=== PATIENT | male | born 1985 | race African-American/Black ===

== ENCOUNTER 2016-06-13 18:21 | Inpatient (IN) | payer OTHER ==
[~2016-06-13 18:21] MED LIST: LACTATED RINGER'S 1000 ML INJ 2,000 ML IV ONE; LACTATED RINGER'S 1000 ML INJ 4,000 ML IV ONE; MIDAZOLAM HCL 5 MG/ML VIAL (1 ML) IV ONE; MORPHINE SULFATE 10 MG/ML INJ IV ONE; ONDANSETRON HCL 4 MG/2 ML VIAL IV PUSH ONE; PHENYLEPH/NS 1000 MCG/10 ML SYR IV ONE; PROPOFOL 200 MG/20 ML AMP IV ONE; ceFAZolin 2 GM PREMIX 50 ML IV STA
[2016-06-13] MEDS ORDERED: ceFAZolin 2 GM PREMIX 50 ML ONE (18:25)
[2016-06-13] MEDS ORDERED: ONDANSETRON HCL 4 MG/2 ML VIAL ONE (18:25)
[2016-06-13] MEDS ORDERED: DIPHTH/TETANUS/ACEL PERTUSSIS (BOOSTER) 0.5 ML VIAL/PFS IM ONE ×2 (18:25→21:49)
[2016-06-13] MEDS ORDERED: MORPHINE SULFATE 8 MG/ML INJ ONE (18:25)
[2016-06-13] MEDS ORDERED: MIDAZOLAM HCL 5 MG/ML VIAL (1 ML) ONE (18:30)
[2016-06-13 18:46] VITALS: O2SAT 100
[2016-06-13 18:54] LABS: AUTOMATED NEUTROPHIL # 6.9 TH/MM3 (1.8-7.7); BASOPHIL % 0.3 % (0.0-2.0); EOSINOPHIL # 0.1 TH/MM3 (0-0.4); EOSINOPHIL % 1.1 % (0.0-4.0); HEMO FLAGS DIFF FINAL; LYMPH % 35.8 % (9.0-44.0); LYMPHOCYTE # 4.5 TH/MM3 (1.0-4.8); MEAN CELL VOLUME 87.4 FL (80.0-100.0); MEAN CORPUSCULAR HEMOGLOBIN 28.6 PG (27.0-34.0); MEAN CORPUSCULAR HGB CONC 32.7 % (32.0-36.0); MONO % 7.1 % (0.0-8.0); NEUT % 55.7 % (16.0-70.0); PLATELET COUNT 292 TH/MM3 (150-450); RED BLOOD COUNT 4.92 MIL/MM3 (4.50-5.90); RED CELL DISTRIBUTION WIDTH 13.1 % (11.6-17.2); WHITE BLOOD COUNT 12.5 TH/MM3 (4.0-11.0)
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
[2016-06-13 19:17] LABS: APTT (PATIENT) 20.8 SEC (24.3-30.1); PROTHROMBIN TIME - PATIENT 11.3 SEC (9.8-11.6)
[2016-06-13] MEDS ORDERED: IOHEXOL 350 MG/ML 10 ML VIAL (for RAD DIAG) IV ONE (19:18)
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
[2016-06-13] MEDS ORDERED: GENTAMICIN SULFATE 80 MG/2 ML VIAL ONE (19:28)
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
[2016-06-13] MEDS ORDERED: BACITRACIN TOP OINT 15 GM TUBE ONE ×2 (21:28→22:16)
[2016-06-13] MEDS ORDERED: MISCELLANEOUS NURSING INFORMATION XX SCH (21:45)
[2016-06-13] MEDS ORDERED: SODIUM CHLORIDE 0.9% FLUSH 10 ML FLUSH IV FLUSH PRN (21:45)
[2016-06-13] MEDS ORDERED: CHLORHEXIDINE GLUCONATE 2 % 1 PACK (2 CLOTHS) TOP PRN (21:45)
[2016-06-13] MEDS ORDERED: MAGNESIUM HYDROXIDE SUSP 30 ML CUP PO PRN (21:45)
[2016-06-13] MEDS ORDERED: fentaNYL CITRATE 250 MCG/5 ML AMP ONE (21:48)
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
[2016-06-13] MEDS ORDERED: *morphine SULFATE 8 MG/ML PERIprocedure ONLY ONE (22:39)
[2016-06-13] MEDS ORDERED: *MEPERIDINE 25 MG INJ VIAL PERIprocedural Use ONLY ONE (22:39)
[2016-06-13] MEDS ORDERED: MIDAZOLAM HCL 2 MG/2 ML VIAL ONE (22:45)
[2016-06-13] MEDS: LACTATED RINGER'S 1000 ML INJ 1,000 ML IV SCH (23:14)
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
[2016-06-13] MEDS ORDERED: LABETALOL HCL 100 MG/20 ML VIAL ONE (23:27)
[2016-06-14] VITALS (7 sets, daily range): BP systolic 129–152; BP diastolic 70–88; PULSE 100–119; RESP 16–19; TEMP 97.6–100; O2SAT 99–100
[2016-06-14] MEDS: HYDROmorphone HCL PF 1 MG/ML VIAL IVP PRN ×3 (00:45→09:34)
[2016-06-14] MEDS: CHLORHEXIDINE GLUCONATE 2 % 1 PACK (2 CLOTHS) TOP SCH (04:24)
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
[2016-06-14 07:30] LABS: BASOPHIL % 0.1 % (0.0-2.0); EOSINOPHIL % 0.1 % (0.0-4.0); HEMATOCRIT 30.3 % (39.0-51.0); LYMPH % 10.3 % (9.0-44.0); LYMPHOCYTE # 1.2 TH/MM3 (1.0-4.8); MEAN CELL VOLUME 86.6 FL (80.0-100.0); MEAN CORPUSCULAR HEMOGLOBIN 29.2 PG (27.0-34.0); MEAN CORPUSCULAR HGB CONC 33.7 % (32.0-36.0); MONO % 13.1 % (0.0-8.0); NEUT % 76.4 % (16.0-70.0); PLATELET COUNT 208 TH/MM3 (150-450); RED CELL DISTRIBUTION WIDTH 12.9 % (11.6-17.2); WHITE BLOOD COUNT 11.8 TH/MM3 (4.0-11.0)
[2016-06-14 07:35] LABS: HEMO FLAGS AUTO DIFF
[2016-06-14] MEDS: LACTATED RINGER'S 1000 ML INJ 1,000 ML IV SCH ×2 (07:42→17:42)
[2016-06-14 07:51] LABS: ANION GAP 10 MEQ/L (5-15); AST (GOT) 207 U/L (15-37); BICARBONATE 27.9 MEQ/L (21.0-32.0); BLOOD UREA NITROGEN 9 MG/DL (7-18); CHLORIDE 103 MEQ/L (98-107); GLOMERULAR FILTRATION RATE 70 ML/MIN (>89); POTASSIUM 3.9 MEQ/L (3.5-5.1); SODIUM (NA) 141 MEQ/L (136-145)
[2016-06-14 07:54] LABS: ALKALINE PHOSPHATASE 40 U/L (45-117); ALT (GPT) 343 U/L (12-78); TOTAL BILIRUBIN ADULT 0.6 MG/DL (0.2-1.0)
[2016-06-14 08:21] LABS: BANDS 12 % (0-6); NEUTROPHIL # MANUAL DIFF 9.7 TH/MM3 (1.8-7.7); POLYS (SEG NEUTROPHILS) 70 % (16-70); WBC DIFF SAMPLE 100
[2016-06-14 08:25] LABS: PLATELET ESTIMATE SMEAR NORMAL (NORMAL); PLATELET MORPHOLOGY NORMAL (NORMAL)
[2016-06-14 08:26] LABS: SCAN/DIFF FINAL DIFF MANUAL
[2016-06-14] MEDS ORDERED: DOCUSATE SODIUM 50 MG/SENNA 8.6 MG TAB PO SCH (09:00)
[2016-06-14] MEDS: BACITRACIN TOP OINT 15 GM TUBE TOPICAL SCH ×2 (09:00→20:28)
[2016-06-14] MEDS: FAMOTIDINE 20 MG TAB PO SCH ×2 (09:00→20:28)
[2016-06-14] MEDS: METHOCARBAMOL 500 MG TAB PO SCH ×2 (09:00→17:59)
[2016-06-14] MEDS ORDERED: POVIDONE IODINE 5% (ANTISEPSIS KIT) 4 APPLICATIONS EACH NARE PRN (10:00)
[2016-06-14] MEDS ORDERED: CHLORHEXIDINE GLUCONATE 2 % 1 PACK (2 CLOTHS) TOPICAL PRN (10:00)
[2016-06-14] MEDS ORDERED: METOPROLOL TARTRATE 25 MG TAB PO PRN (10:00)
[2016-06-14] MEDS ORDERED: SODIUM CHLORID 0.9% 500 ML IV PRN (10:00)
[2016-06-14] MEDS ORDERED: INSULIN HUMAN REGULAR 1,000 UNITS/10 ML VIAL SQ PRN (10:00)
[2016-06-14] MEDS ORDERED: LACTATED RINGER'S 1000 ML IV PRN (10:00)
[2016-06-14] MEDS ORDERED: ACETAMINOPHEN 1000 MG/100 ML VIAL IV ONE (11:23)
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
[2016-06-14] MEDS ORDERED: ceFAZolin INJ 1,000 MG VIAL IV ONE (11:52)
[2016-06-14] MEDS ORDERED: GENTAMICIN SULFATE 80 MG/2 ML VIAL IRRIGATION ONE (11:55)
[2016-06-14] MEDS ORDERED: LACTATED RINGER'S 1000 ML INJ 2,000 ML IV ONE (12:00)
[2016-06-14] MEDS ORDERED: ONDANSETRON HCL 4 MG/2 ML VIAL IV PUSH ONE (12:00)
[2016-06-14] MEDS ORDERED: NEOSTIGMINE 3 MG/3 ML SYR IV ONE (12:00)
[2016-06-14] MEDS ORDERED: PROPOFOL 200 MG/20 ML AMP IV ONE (12:00)
--- NOTE | 2016-06-14 13:01 | PD.OP ---
cc: Anthony Hirsch Jr., MD Operative Report Date of Surgery: Jun 14, 2016 Preoperative Diagnosis: Closed right ankle bimalleolar fracture dislocation Postoperative Diagnosis: Same Procedure: Open reduction internal fixation closed right ankle bimalleolar fracture Open reduction and fixation right ankle syndesmosis Surgeon: Anthony Hirsch [facility] Manager(s): Staff Resident Surgeon: None Operation and Findings: Informed consent obtained, operative site was marked. The right foot and ankle were seen and evaluated this morning for soft tissue swelling and it was amenable to surgical fixation. He was brought to the operating room and placed on the operating room table. He was given intravenous sedation, general endotracheal anesthesia. He received IV antibiotics and was placed in the lateral decubitus position. Foot and leg were prepped with alcohol, followed by Hibiclens, draped in usual sterile fashion. A time out procedure was preformed. The procedure began with a five inch incision over the lateral aspect fibula. A full thickness flap was carefully elevated. The fracture was identified , periosteum was elevated at the fracture site. There was a very long spiral fibula fracture. Attention was now turned to expose the distal end of the fibula and as much proximal as necessary to allow reduction and plate position. Attention was turned to the syndesmosis and under direct visualization the syndesmotic area was cleaned of any debris and irrigated. Using pointed reduction clamps the fibula was reduced and reduction was maintained using lag screw fixation. Reduction was confirmed under fluoroscopy. The rest of the fibula was neutralized using a lateral fibular plate with locking screws distally. Using fluoroscopy, the syndesmosis was stressed in the mortise view with the cotton test and external rotation stress test. The syndesmosis was found to be unstable and asymmetrical. With the ankle in slight dorsiflexion, the syndesmosis was reduced and clamped prior to lag screw fixation with 1 fully threaded cortical screw going through 4 cortices. Multiplanar fluoroscopy confirmed well-aligned fracture. Final fluoroscopy was used to confirm a well-aligned fracture with well-placed hardware. Incision was thoroughly irrigated. Hemostasis was confirmed. Fascia layer was closed 2-0 Vicryl, the skin and subcutaneous tissue and skin closed with 3-0 nylon, in vertical mattress fashion. Sterile dressings were applied the patient was placed into a well molded padded splint. The patient was transferred to the Recovery Room in stable condition. POSTP-OP PLAN OF ACTIVITY Antibiotics: Ancef Antiocoagulation: Lovenox Weight bearing status: NWB Dressing: Do not remove splints/cast Anthony Hirsch Jr., MD Jun 14, 2016 13:01
[2016-06-14] MEDS ORDERED: PERC5TAB12 PO (13:02)
[2016-06-14] MEDS ORDERED: COMMODE 3-IN-11 MIS (13:06)
[2016-06-14] MEDS ORDERED: WHEEMIS3 (13:06)
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
[2016-06-14] MEDS ORDERED: oxyCODONE/ACETAMINOPHEN 5 MG/325 MG TAB PO PRN (13:15)
[2016-06-14] MEDS ORDERED: Post-op Orders (for Pharmacy) MISC XX ONE (13:15)
[2016-06-14] MEDS ORDERED: PROMETHAZINE HCL 25 MG TAB PO PRN (13:15)
[2016-06-14] MEDS ORDERED: ACETAMINOPHEN 325 MG TAB PO PRN (13:15)
[2016-06-14] MEDS ORDERED: SODIUM CHLORIDE 0.9% FLUSH 10 ML FLUSH IV FLUSH PRN (13:15)
[2016-06-14] MEDS ORDERED: DO NOT ADM ANY ANTICOAGULANT DRUGS PRN (13:35)
[2016-06-14] MEDS ORDERED: *MEPERIDINE 25 MG INJ VIAL PERIprocedural Use ONLY ONE (13:41)
[2016-06-14] MEDS ORDERED: fentaNYL CITRATE 250 MCG/5 ML AMP ONE (13:54)
[2016-06-14] MEDS ORDERED: *morphine SULFATE 8 MG/ML PERIprocedure ONLY ONE (14:10)
--- NOTE | 2016-06-14 14:27 | RADRPT ---
EXAM DATE/TIME: 06/14/2016 12:41 [facility] COMPARISON: FLUOROSCOPY PORTABLE UP TO 1HR, June 14, 2016, 0:00. INDICATIONS : ORIF right ankle. MEDICAL HISTORY : None. SURGICAL HISTORY : None. ENCOUNTER: Initial ACUITY: 1 day PAIN SCORE: Non-responsive. LOCATION: Right ankle FINDINGS: Intraoperative films demonstrate plating of the patient's distal fibular fracture with a screw across the TIPS/fib joint. CONCLUSION: 1. Orthopedic hardware in excellent position. Kaveh Abdi MD on June 14, 2016 at 14:24 Board Certified Radiologist. This report was verified electronically.
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
[2016-06-14] MEDS: VANCOMYCIN INJ 1,000 MG in SODIUM CHLOR 0.9% 250 ML INJ 250 ML IV SCH (14:35)
[2016-06-14] MEDS: KETOROLAC TROMETHAMINE 30 MG/ML (IVP) VIAL IVP SCH ×2 (14:40→20:28)
--- NOTE | 2016-06-14 14:52 | HHI.PR ---
Subjective Subjective Notes S/P ORIF Right ankle, I&D of right knee lac with closure Objective Vitals/I&O Vital Signs Date Time Temp Pulse Resp B/P Pulse Ox O2 Delivery O2 Flow Rate FiO2 06/14/16 13:45 92 18 157/82 97 Nasal Cannula 2 06/14/16 13:40 98.1 Labs Laboratory Tests Test 06/13/16 06/14/16 18:24 07:09 White Blood Count 12.5 11.8 Red Blood Count 4.92 3.50 Hemoglobin 14.0 10.2 Bedside Hemoglobin 14.6 Hematocrit 43.0 30.3 Bedside Hematocrit 43.0 Mean Corpuscular Volume 87.4 86.6 Mean Corpuscular Hemoglobin 28.6 29.2 Mean Corpuscular Hemoglobin 32.7 33.7 Concent Red Cell Distribution Width 13.1 12.9 Platelet Count 292 208 Mean Platelet Volume 7.1 6.9 Neutrophils (%) (Auto) 55.7 76.4 Lymphocytes (%) (Auto) 35.8 10.3 Monocytes (%) (Auto) 7.1 13.1 Eosinophils (%) (Auto) 1.1 0.1 Basophils (%) (Auto) 0.3 0.1 Neutrophils # (Auto) 6.9 9.0 Lymphocytes # (Auto) 4.5 1.2 Monocytes # (Auto) 0.9 1.5 Eosinophils # (Auto) 0.1 0.0 Basophils # (Auto) 0.0 0.0 CBC Comment DIFF FINAL AUTO DIFF Differential Comment FINAL DIFF MANUAL Prothrombin Time 11.3 Prothromb Time International 1.0 Ratio Activated Partial 20.8 Thromboplast Time Bedside Sodium 143 Bedside Potassium 3.0 Bedside Chloride 104 Bedside Blood Urea Nitrogen 15 Bedside Creatinine 1.3 Bedside Glucose 178 Blood Type AB POSITIVE Antibody Screen NEGATIVE Differential Total Cells 100 Counted Neutrophils % (Manual) 70 Band Neutrophils % 12 Lymphocytes % 8 Monocytes % 10 Neutrophils # (Manual) 9.7 Platelet Estimate NORMAL Platelet Morphology Comment NORMAL Sodium Level 141 Potassium Level 3.9 Chloride Level 103 Carbon Dioxide Level 27.9 Anion Gap 10 Blood Urea Nitrogen 9 Creatinine 1.10 Estimat Glomerular Filtration 70 Rate Random Glucose 129 Calcium Level 8.0 Total Bilirubin 0.6 Aspartate Amino Transf 207 (AST/SGOT) Alanine Aminotransferase 343 (ALT/SGPT) Alkaline Phosphatase 40 Total Protein 5.6 Albumin 3.2 Radiology Last Impressions Knee X-Ray 06/14/16 0000 Signed Impressions: Service Date/Time: Tuesday, June 14, 2016 12:41 - CONCLUSION: 1. No definite bony fracture. The alignment appears good. Kaveh Abdi MD Ankle X-Ray 06/14/16 Signed Impressions: Service Date/Time: Tuesday, June 14, 2016 12:41 - CONCLUSION: 1. Orthopedic hardware in excellent position. Kaveh Abdi MD Pelvis X-Ray 06/13/161842 Signed Impressions: Service Date/Time: Monday, June 13, 2016 18:15 - CONCLUSION: Unremarkable study. Efrain Hernandez MD Maxillofacial CT 06/13/161842 Signed Impressions: Service Date/Time: Monday, June 13, 2016 18:55 - CONCLUSION: Right nasal bone fracture. Efrain Hernandez MD Head CT 06/13/161842 Signed Impressions: Service Date/Time: Monday, June 13, 2016 18:47 - CONCLUSION: Nasal bone fracture and radiopaque foreign body in the right frontal scalp. Efrain Hernandez MD Chest X-Ray 06/13/161842 Signed Impressions: Service Date/Time: Monday, June 13, 2016 18:15 - CONCLUSION: No acute cardiopulmonary disease. Efrain Hernandez MD Chest CT 06/13/161842 Signed Impressions: Service Date/Time: Monday, June 13, 2016 19:02 - CONCLUSION: Lingular contusion. Efrain Hernandez MD Cervical Spine CT 06/13/161842 Signed Impressions: Service Date/Time: Monday, June 13, 2016 18:54 - CONCLUSION: Unremarkable study. Efrain Hernandez MD Abdomen/Pelvis CT 06/13/161842 Signed Impressions: Service Date/Time: Monday, June 13, 2016 19:01 - CONCLUSION: Essentially unremarkable study. Efrain Hernandez MD Radius/Ulna X-Ray 06/13/16 Signed Impressions: Service Date/Time: Monday, June 13, 2016 18:15 - CONCLUSION: Multiple radiopaque foreign bodies possibly on the skin, however the exact location is not certain without any fracture. Efrain Hernandez MD Hand X-Ray 4/3/17 0000 Signed Impressions: Service Date/Time: Monday, June 13, 2016 18:15 - CONCLUSION: Radiopaque densities without any fracture. Efrain Hernandez MD Narrative Exam GENERAL: 30-year-old well-nourished, well developed male lying in bed. SKIN: Warm and dry. HEAD: Normocephalic. Sutures to forehead. ENT: No nasal bleeding or discharge. Mucous membranes pink and moist. NECK: Trachea midline. No JVD. CARDIOVASCULAR: Regular rate and rhythm. RESPIRATORY: No accessory muscle use. Lungs clear to auscultation. Breath sounds equal bilaterally. GASTROINTESTINAL: Abdomen soft, non-tender, nondistended. + BS. MUSCULOSKELETAL: Extremities without cyanosis, or edema. RLE soft cast in place. Good cap refill. NEUROLOGICAL: Awake and alert. Normal speech. A/P Assessment and Plan INJURIES: Scalp lac Lung contusion Nasal fx RIGHT ankle fx LEFT hand injury 06/14: ORIF Right ankle, I&D of right knee lac with closure Diet: NPO for surgery Pulmonary: nasal cannula. Pain: Dilaudid 1 q3H, Robaxin Activity: BR. GI: Pepcid Bowel: Jemma-colace 2 tab, MOM PRN. No BM yet. DVT: SCDs Awaiting OMFS evaluation. Elevated blood sugars on labs. Hgb A1C pending. Patient's mother states he has had problems in the past with hypoglycemia. Reports patient does not have a PCP at this time. Plan of care discussed with patient and family at bedside. Case management consulted for discharge planning. Remarks seen and examined with RECREATION THERAPIST-agree with assessment and plan in the OR for ortho procedure pain control dvt prophylaxis Radha Duron Jun 14, 2016 14:51 Bernarda Camilo MD Jun 14, 2016 18:13
[2016-06-14] MEDS: oxyCODONE/ACETAMINOPHEN 5 MG/325 MG TAB PO PRN (15:38)
[2016-06-14 16:11] LABS: HEMOGLOBIN A1a 0.9 %; HEMOGLOBIN A1b 1.7 %; HEMOGLOBIN Ao 86.1 %; HEMOGLOBIN LA1C 1.9 %; HEMOGLOBIN P3 3.5 %
[2016-06-14] MEDS: MORPHINE SULFATE 8 MG/ML INJ IV PUSH PRN (20:28)
[2016-06-14] MEDS: SODIUM CHLORIDE 0.9% FLUSH 10 ML FLUSH IV FLUSH SCH (20:29)
[2016-06-14] MEDS ORDERED: ZOLPIDEM TARTRATE 5 MG TAB PO PRN (21:00)
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
[2016-06-15 00:45] VITALS: BP 147/75; PULSE 103; RESP 18; TEMP 99.3; O2SAT 100
[2016-06-15] MEDS: ENOXAPARIN SODIUM 30 MG/0.3 ML SYRINGE SQ SCH ×2 (01:03→12:55)
[2016-06-15] MEDS: KETOROLAC TROMETHAMINE 30 MG/ML (IVP) VIAL IVP SCH ×4 (01:03→20:04)
[2016-06-15] MEDS: METHOCARBAMOL 500 MG TAB PO SCH ×3 (01:04→16:46)
[2016-06-15] MEDS: VANCOMYCIN INJ 1,000 MG in SODIUM CHLOR 0.9% 250 ML INJ 250 ML IV SCH (01:04)
[2016-06-15] MEDS: MORPHINE SULFATE 8 MG/ML INJ IV PUSH PRN ×2 (01:08→20:03)
[2016-06-15] MEDS: LACTATED RINGER'S 1000 ML INJ 1,000 ML IV SCH (01:31)
[2016-06-15] MEDS: CHLORHEXIDINE GLUCONATE 2 % 1 PACK (2 CLOTHS) TOP SCH (01:32)
[2016-06-15 04:30] VITALS: BP 131/87; PULSE 102; RESP 18; TEMP 99.4; O2SAT 100
[2016-06-15] MEDS: oxyCODONE/ACETAMINOPHEN 5 MG/325 MG TAB PO PRN ×2 (06:29→12:54)
[2016-06-15 07:12] LABS: AUTOMATED NEUTROPHIL # 5.9 TH/MM3 (1.8-7.7); BASOPHIL % 0.2 % (0.0-2.0); EOSINOPHIL % 0.4 % (0.0-4.0); HEMATOCRIT 25.1 % (39.0-51.0); HEMO FLAGS DIFF FINAL; LYMPH % 14.9 % (9.0-44.0); LYMPHOCYTE # 1.2 TH/MM3 (1.0-4.8); MEAN CELL VOLUME 86.9 FL (80.0-100.0); MEAN CORPUSCULAR HEMOGLOBIN 29.3 PG (27.0-34.0); MEAN CORPUSCULAR HGB CONC 33.8 % (32.0-36.0); MONO % 14.5 % (0.0-8.0); PLATELET COUNT 168 TH/MM3 (150-450); RED BLOOD COUNT 2.89 MIL/MM3 (4.50-5.90); RED CELL DISTRIBUTION WIDTH 12.8 % (11.6-17.2); WHITE BLOOD COUNT 8.4 TH/MM3 (4.0-11.0)
[2016-06-15 07:20] VITALS: BP 133/73; PULSE 100; RESP 18; TEMP 98.9; O2SAT 95
[2016-06-15 07:37] LABS: ALKALINE PHOSPHATASE 38 U/L (45-117); ALT (GPT) 194 U/L (12-78); ANION GAP 6 MEQ/L (5-15); AST (GOT) 90 U/L (15-37); BICARBONATE 30.9 MEQ/L (21.0-32.0); BLOOD UREA NITROGEN 8 MG/DL (7-18); CHLORIDE 103 MEQ/L (98-107); GLOMERULAR FILTRATION RATE 112 ML/MIN (>89); POTASSIUM 3.6 MEQ/L (3.5-5.1); SODIUM (NA) 140 MEQ/L (136-145); TOTAL BILIRUBIN ADULT 0.5 MG/DL (0.2-1.0)
[2016-06-15] MEDS: FAMOTIDINE 20 MG TAB PO SCH ×2 (08:58→20:03)
[2016-06-15] MEDS: SODIUM CHLORIDE 0.9% FLUSH 10 ML FLUSH IV FLUSH SCH ×2 (08:59→20:04)
[2016-06-15 11:49] VITALS: BP 145/88; PULSE 121; RESP 17; TEMP 99.6; O2SAT 97
[2016-06-15] MEDS: BACITRACIN TOP OINT 15 GM TUBE TOPICAL SCH (12:53)
[2016-06-15] MEDS: DOCUSATE SODIUM 50 MG/SENNA 8.6 MG TAB PO SCH ×2 (12:54→20:03)
--- NOTE | 2016-06-15 14:08 | HHI.PR ---
Subjective Subjective Notes Pain controlled, OOB in chair. Objective Vitals/I&O Vital Signs Date Time Temp Pulse Resp B/P Pulse Ox O2 Delivery O2 Flow Rate FiO2 06/15/16 11:49 99.6 121 17 145/88 97 06/14/16 20:39 Nasal Cannula 2.00 Labs Laboratory Tests Test 06/15/16 06:34 White Blood Count 8.4 Red Blood Count 2.89 Hemoglobin 8.5 Hematocrit 25.1 Mean Corpuscular Volume 86.9 Mean Corpuscular Hemoglobin 29.3 Mean Corpuscular Hemoglobin 33.8 Concent Red Cell Distribution Width 12.8 Platelet Count 168 Mean Platelet Volume 7.0 Neutrophils (%) (Auto) 70.0 Lymphocytes (%) (Auto) 14.9 Monocytes (%) (Auto) 14.5 Eosinophils (%) (Auto) 0.4 Basophils (%) (Auto) 0.2 Neutrophils # (Auto) 5.9 Lymphocytes # (Auto) 1.2 Monocytes # (Auto) 1.2 Eosinophils # (Auto) 0.0 Basophils # (Auto) 0.0 CBC Comment DIFF FINAL Differential Comment Sodium Level 140 Potassium Level 3.6 Chloride Level 103 Carbon Dioxide Level 30.9 Anion Gap 6 Blood Urea Nitrogen 8 Creatinine 0.97 Estimat Glomerular Filtration 112 Rate Random Glucose 111 Calcium Level 8.4 Total Bilirubin 0.5 Aspartate Amino Transf 90 (AST/SGOT) Alanine Aminotransferase 194 (ALT/SGPT) Alkaline Phosphatase 38 Total Protein 5.7 Albumin 2.9 Radiology Last Impressions Knee X-Ray 06/14/16 0000 Signed Impressions: Service Date/Time: Tuesday, June 14, 2016 12:41 - CONCLUSION: 1. No definite bony fracture. The alignment appears good. Kaveh Abdi MD Ankle X-Ray 06/14/16 0000 Signed Impressions: Service Date/Time: Tuesday, June 14, 2016 12:41 - CONCLUSION: 1. Orthopedic hardware in excellent position. Kaveh Abdi MD Pelvis X-Ray 06/13/161842 Signed Impressions: Service Date/Time: Monday, June 13, 2016 18:15 - CONCLUSION: Unremarkable study. Efrain Hernandez MD Maxillofacial CT 06/13/161842 Signed Impressions: Service Date/Time: Monday, June 13, 2016 18:55 - CONCLUSION: Right nasal bone fracture. Efrain Hernandez MD Head CT 06/13/161842 Signed Impressions: Service Date/Time: Monday, June 13, 2016 18:47 - CONCLUSION: Nasal bone fracture and radiopaque foreign body in the right frontal scalp. Efrain Hernandez MD Chest X-Ray 06/13/161842 Signed Impressions: Service Date/Time: Monday, June 13, 2016 18:15 - CONCLUSION: No acute cardiopulmonary disease. Efrain Hernandez MD Chest CT 06/13/161842 Signed Impressions: Service Date/Time: Monday, June 13, 2016 19:02 - CONCLUSION: Lingular contusion. Efrain Hernandez MD Cervical Spine CT 06/13/161842 Signed Impressions: Service Date/Time: Monday, June 13, 2016 18:54 - CONCLUSION: Unremarkable study. Efrain Hernandez MD Abdomen/Pelvis CT 06/13/161842 Signed Impressions: Service Date/Time: Monday, June 13, 2016 19:01 - CONCLUSION: Essentially unremarkable study. Efrain Hernandez MD Radius/Ulna X-Ray 06/13/16 0000 Signed Impressions: Service Date/Time: Monday, June 13, 2016 18:15 - CONCLUSION: Multiple radiopaque foreign bodies possibly on the skin, however the exact location is not certain without any fracture. Efrain Hernandez MD Hand X-Ray 06/13/16 0000 Signed Impressions: Service Date/Time: Monday, June 13, 2016 18:15 - CONCLUSION: Radiopaque densities without any fracture. Efrain Hernandez MD Narrative Exam GENERAL: 30-year-old well-nourished, well developed male sitting OOB in chair. SKIN: Warm and dry. HEAD: Normocephalic. Sutures to midline forehead. Multiple facial abrasions. ENT: No nasal bleeding or discharge. Mucous membranes pink and moist. NECK: Trachea midline. No JVD. CARDIOVASCULAR: Regular rate and rhythm. RESPIRATORY: No accessory muscle use. Lungs clear and diminished to auscultation. Breath sounds equal bilaterally. GASTROINTESTINAL: Abdomen soft, non-tender, nondistended. + BS. MUSCULOSKELETAL: Extremities without cyanosis, generalized facial edema noted. RLE soft splint in place. Good cap refill. NEUROLOGICAL: Awake and alert. Normal speech. A/P Assessment and Plan INJURIES: Scalp lac Lung contusion Nasal fx (non-op) RIGHT ankle fx LEFT hand injury 06/14: ORIF Right ankle, I&D of right knee lac with closure Diet: Regular, tolerating Pulmonary: nasal cannula. IS, encourage patient use. Pain: Morphine, Robaxin, Toradol, Percocet. Pain controlled. Activity: OOB. (NWB RLE) PT and OT evaluating. GI: Pepcid Bowel: Jemma-colace 2 tab, MOM PRN. No BM yet. DVT: SCDs, Lovenox 30 BID Elevated blood sugars on labs. Hgb A1C 5.4. No further interventions. Plan of care discussed with patient, family and RN at bedside. Case management consulted for discharge planning. Plan to discharge home when cleared by orthopedics. Attending Statement The exam, history, and the medical decision-making described in the above note were completed with the assistance of the mid-level provider. I reviewed and agree with the findings presented. I attest that I had a [id number] encounter with the patient on the same day, and personally performed and documented my assessment and findings in the medical record. Radha Duron Jun 15, 2016 14:07 Riky Ferrari MD Jun 17, 2016 19:23
[2016-06-15] MEDS ORDERED: WALKER WHEELS/F1 MIS (14:12)
[2016-06-15 16:32] VITALS: BP 160/74; PULSE 103; RESP 18; TEMP 101.7; O2SAT 96
--- NOTE | 2016-06-15 17:18 | PD.ORT.PN ---
Subjective Subjective Remarks In bed comfortable. Minimal ankle pain. No chest pain or shortness of breath. Objective Vitals Vital Signs Date Time Temp Pulse Resp B/P Pulse Ox O2 Delivery O2 Flow Rate FiO2 06/15/16 16:32 101.7 103 18 160/74 96 06/15/16 11:49 99.6 121 17 145/88 97 06/15/16 07:20 98.9 100 18 133/73 95 06/15/16 04:30 99.4 102 18 131/87 100 06/15/16 00:45 99.3 103 18 147/75 100 06/14/16 20:39 Nasal Cannula 2.00 06/14/16 19:36 99.2 101 16 143/75 100 I/O 06/14/16 06/14/16 06/14/16 06/15/16 06/15/16 06/15/16 07:00 15:00 23:00 07:00 15:00 23:00 Intake Total 500 ml 2800 ml 240 ml 120 ml 240 ml Output Total 1450 ml 1865 ml 1500 ml 450 ml 650 ml Balance -950 ml 935 ml -1260 ml -330 ml -410 ml Intake Oral 0 ml 0 ml 240 ml 120 ml 240 ml IV Total 500 ml 100 ml Other 2700 ml Output Urine Total 1450 ml 1665 ml 1500 ml 450 ml 650 ml Estimated Blood Loss 200 ml # Bowel Movements 0 0 0 0 0 Result Diagram: 06/15/16 0634 06/15/16 0634 Imaging Last 24 hours Impressions Pelvis X-Ray 06/13/161842 Signed Impressions: Service Date/Time: Monday, June 13, 2016 18:15 - CONCLUSION: Unremarkable study. Efrain Hernandez MD Maxillofacial CT 06/13/161842 Signed Impressions: Service Date/Time: Monday, June 13, 2016 18:55 - CONCLUSION: Right nasal bone fracture. Efrain Hernandez MD Head CT 06/13/161842 Signed Impressions: Service Date/Time: Monday, June 13, 2016 18:47 - CONCLUSION: Nasal bone fracture and radiopaque foreign body in the right frontal scalp. Efrain Hernandez MD Chest X-Ray 06/13/161842 Signed Impressions: Service Date/Time: Monday, June 13, 2016 18:15 - CONCLUSION: No acute cardiopulmonary disease. Efrain Hernandez MD Chest CT 06/13/161842 Signed Impressions: Service Date/Time: Monday, June 13, 2016 19:02 - CONCLUSION: Lingular contusion. Efrain Hernandez MD Cervical Spine CT 06/13/161842 Signed Impressions: Service Date/Time: Monday, June 13, 2016 18:54 - CONCLUSION: Unremarkable study. Efrain Hernandez MD Abdomen/Pelvis CT 06/13/161842 Signed Impressions: Service Date/Time: Monday, June 13, 2016 19:01 - CONCLUSION: Essentially unremarkable study. Efrain Hernandez MD Objective Remarks Alert awake and oriented -3. No acute distress. Pulmonary: Normal respiratory effort. Right lower extremity: Splint in place. Grossly neurovascular intact. +EHL/FHL , Supple compartments. Negative Homans sign. Assessment & Plan Assessment and Plan Postop day 1open reduction internal fixation RIGHT ankle. Irrigation and debridement RIGHT knee wound Antibiotics- Ancef. dc today Anticoagulation- Lovenox Weightbearing statusnonweightbearing RIGHT lower extremity. ok for knee and ankle ROM. dispo: likely home with HH rx and dme in chart Anthony Hirsch Jr., MD Jun 15, 2016 17:18
[2016-06-15 19:53] VITALS: BP 137/81; PULSE 91; RESP 18; TEMP 100
[2016-06-15] MEDS ORDERED: DOCUSATE SODIUM 100 MG CAP PO SCH (21:00)
[2016-06-16 00:25] VITALS: BP 146/77; PULSE 95; RESP 17; TEMP 99.9; O2SAT 98
[2016-06-16] MEDS: METHOCARBAMOL 500 MG TAB PO SCH ×2 (01:00→07:30)
[2016-06-16] MEDS: oxyCODONE/ACETAMINOPHEN 5 MG/325 MG TAB PO PRN ×2 (01:07→12:50)
[2016-06-16] MEDS: KETOROLAC TROMETHAMINE 30 MG/ML (IVP) VIAL IVP SCH ×2 (01:08→07:31)
[2016-06-16] MEDS: ENOXAPARIN SODIUM 30 MG/0.3 ML SYRINGE SQ SCH ×3 (01:09→16:39)
[2016-06-16] MEDS: CHLORHEXIDINE GLUCONATE 2 % 1 PACK (2 CLOTHS) TOP SCH (04:00)
[2016-06-16 04:35] VITALS: TEMP 97.3
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
[2016-06-16] MEDS: FAMOTIDINE 20 MG TAB PO SCH (07:30)
[2016-06-16] MEDS: DOCUSATE SODIUM 50 MG/SENNA 8.6 MG TAB PO SCH (07:30)
[2016-06-16 07:34] VITALS: BP 147/81; PULSE 92; RESP 16; TEMP 98.8; O2SAT 100
[2016-06-16] MEDS ORDERED: POVIDONE IODINE 10% OINT 30 GM TUBE TOPICAL SCH (11:15)
[2016-06-16 12:48] VITALS: BP 135/76; PULSE 108; RESP 16; TEMP 99.5; O2SAT 100
--- NOTE | 2016-06-16 12:52 | HHI.FF ---
Face to Face Verification Diagnosis: (1) Bimalleolar fracture of right ankle Physical Therapy Order: Evaluate and Treat, Improve ambulation, Strength and gait training Home Health Nursing Order: Nursing assessment with vital signs I have seen patient Jasvir Rajeev Marin Jr on 06/16/16. My clinical findings support the need for the requested home health care services because: Ltd mobility - disease progression Limited ability to care for self High risk of falls I certify that my clinical findings support that this patient is homebound because: Unsteady gait/balance Radha Duron Jun 16, 2016 12:51
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
[2016-06-16 16:05] VITALS: BP 133/76; PULSE 98; RESP 17; TEMP 98.8; O2SAT 99
--- NOTE | 2016-06-16 16:35 | PD.PLAS.PN ---
Subjective Remarks This is a 30 year old male, 3 days status post repair of wounds of the bilateral hands and forearms with repair of extensor tendons to the left thumb and index finger. DOS 06/13/16. Objective Vital Signs Date Time Temp Pulse Resp B/P Pulse Ox O2 Delivery O2 Flow Rate FiO2 06/16/16 12:48 99.5 108 16 135/76 100 06/16/16 07:34 98.8 92 16 147/81 100 06/16/16 04:35 97.3 06/16/16 00:25 99.9 95 17 146/77 98 06/15/16 19:53 100.0 91 18 137/81 06/15/16 19:07 Room Air 06/15/16 16:32 101.7 103 18 160/74 96 I/O 06/15/16 06/15/16 06/15/16 06/16/16 06/16/16 06/16/16 07:00 15:00 23:00 07:00 15:00 23:00 Intake Total 120 ml 240 ml 480 ml 240 ml Output Total 450 ml 650 ml 450 ml Balance -330 ml -410 ml 480 ml -210 ml Intake Oral 120 ml 240 ml 480 ml 240 ml Output Urine Total 450 ml 650 ml 450 ml # Voids 1 # Bowel Movements 0 0 0 0 Result Diagram: 06/15/16 0634 06/15/16 0634 Exam Findings The patient is lying comfortably. Dressings are dry and in place. On exam, wounds are healing well bilaterally. Sutures are intact. There is no erythema , induration, drainage, odor, or other indication of infection. Skin is warm and well perfused.. Assessment and Plan Diagnosis: (1) Laceration of arm, right, multiple sites (2) Laceration of arm, left, multiple sites (3) Laceration of extensor muscle, fascia and tendon of left index finger at wrist and hand level, subsequent encounter (4) Laceration of extensor muscle, fascia and tendon of left thumb at wrist and hand level, subsequent encounter (5) Abrasions of multiple sites Assessment and Plan The patient is progressing well. Wounds are redressed with povidone iodine ointment, adaptic, telfa, and dry dressing. A well padded, well molded splint is applied to the left upper extremity and secured loosely with sharon wrap. The patient is advised to keep these dressings dry and in place. He is due to be discharged today. He will follow up in the office next week for reevaluation and dressing changes. Discussed with RN The exam, history, and the medical decision-making described in the above note were completed with the assistance of the mid-level provider. I reviewed and agree with the findings presented. I attest that I had a [id number] encounter with the patient on the same day, and personally performed and documented my assessment and findings in the medical record. Silvia Whitt M.D. Discharge Planning Patient is cleared for discharge from hand surgery standpoint. Keep dressings dry and in place. Follow up in office on Monday06/21/16. Irina Ward Jun 16, 2016 16:35
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
[2016-06-23] MEDS ORDERED: XARE20TA PO (11:53)
[2016-06-23] MEDS ORDERED: ORPH100T99 PO (11:53)
[2016-07-26] MEDS ORDERED: IBUP400T20 PO (08:43)
[2016-07-26] MEDS ORDERED: IBUP800T23 PO (12:42)
[2016-07-26] MEDS ORDERED: PERC5TAB12 PO (12:42)
[2016-08-18] MEDS ORDERED: BACT800T5 PO (09:25)
== END 2016-06-16 17:29 | disposition home or self-care (01) | DRG 493 ==
LOC: NEPI 18:21 → EDBD 19:43 → MERGE 19:43 → NEDA 19:43 → HPAC 19:51 → N06B 06-14 00:39
PROVIDERS: ADMIT Surgery Trauma Surgery; ATTEND Surgery Trauma Surgery
PROC: 0QSJXZZ Reposition Right Fibula, External Approach (ICD-10-PCS; 2016-06-13)
PROC: 0HQ1XZZ Repair Face Skin, External Approach (ICD-10-PCS; 2016-06-13)
PROC: 0HQ0XZZ Repair Scalp Skin, External Approach (ICD-10-PCS; 2016-06-13)
PROC: 0CQ1XZZ Repair Lower Lip, External Approach (ICD-10-PCS; 2016-06-13)
PROC: 0CQ0XZZ Repair Upper Lip, External Approach (ICD-10-PCS; 2016-06-13)
PROC: 0HQKXZZ Repair Right Lower Leg Skin, External Approach (ICD-10-PCS; 2016-06-14)
PROC: 3E10X8Z Irrigation of Skin and Mucous Membranes using Irrigating Substance (ICD-10-PCS; 2016-06-14)
PROC: 0QSJ04Z Reposition Right Fibula with Internal Fixation Device, Open Approach (ICD-10-PCS; principal; 2016-06-14 11:29)
PROC: 0LQ80ZZ Repair Left Hand Tendon, Open Approach (ICD-10-PCS; 2016-06-15)
PROC: 0HQGXZZ Repair Left Hand Skin, External Approach (ICD-10-PCS; 2016-06-15)
PROC: 0HQDXZZ Repair Right Lower Arm Skin, External Approach (ICD-10-PCS; 2016-06-15)
PROC: 0HQEXZZ Repair Left Lower Arm Skin, External Approach (ICD-10-PCS; 2016-06-15)
DX: S82.841A Displaced bimalleolar fracture of right lower leg, initial encounter for closed fracture (principal); S27.321A Contusion of lung, unilateral, initial encounter; S06.0X9A Concussion with loss of consciousness of unspecified duration, initial encounter; S02.2XXA Fracture of nasal bones, initial encounter for closed fracture; S66.222A Laceration of extensor muscle, fascia and tendon of left thumb at wrist and hand level, initial encounter; S66.321A Laceration of extensor muscle, fascia and tendon of left index finger at wrist and hand level, initial encounter; S41.111A Laceration without foreign body of right upper arm, initial encounter; R00.0 Tachycardia, unspecified; S01.02XA Laceration with foreign body of scalp, initial encounter; Y93.89 Activity, other specified; Y92.9 Unspecified place or not applicable; Y99.9 Unspecified external cause status; S61.011A Laceration without foreign body of right thumb without damage to nail, initial encounter; S51.812A Laceration without foreign body of left forearm, initial encounter; S01.411A Laceration without foreign body of right cheek and temporomandibular area, initial encounter; S01.511A Laceration without foreign body of lip, initial encounter; S61.412A Laceration without foreign body of left hand, initial encounter; S00.81XA Abrasion of other part of head, initial encounter; S02.5XXA Fracture of tooth (traumatic), initial encounter for closed fracture; S01.81XA Laceration without foreign body of other part of head, initial encounter; V86.59XA Driver of other special all-terrain or other off-road motor vehicle injured in nontraffic accident, initial encounter; Y93.9 Activity, unspecified; S81.011A Laceration without foreign body, right knee, initial encounter; R73.9 Hyperglycemia, unspecified
CPT/HCPCS: 27810; 70450; 70486; 71010; 71260; 72125; 72170; 73090; 73120; 73560; 73600; 73610; 74177; 76000; 80053; 82435; 82565; 82947; 83036; 84132; 84295; 84520; 85007; 85025; 85027; 85610; 85730; 86850; 86900; 86901; 90471; 90715; 94150; 96374; 96375; 99291; C1713; G0390; J0131; J0690; J1170; J1580; J1650; J1885; J2175; J2250; J2270; J2370; J2405; J2710; J3010; J3370; J7050; J7120; L0150; Q9967

== ENCOUNTER 2016-07-24 13:29 | Emergency (ER) | payer OTHER ==
[~2016-07-24] VITALS: Ht 175.3 cm; Wt 77.0 kg
[~2016-07-24 13:29] MED LIST changes: +COMMODE 3-IN-11 MIS; -LACTATED RINGER'S 1000 ML INJ 2,000 ML IV ONE; -LACTATED RINGER'S 1000 ML INJ 4,000 ML IV ONE; -MIDAZOLAM HCL 5 MG/ML VIAL (1 ML) IV ONE; -MORPHINE SULFATE 10 MG/ML INJ IV ONE; -ONDANSETRON HCL 4 MG/2 ML VIAL IV PUSH ONE; +ORPH100T99 PO; +PERC5TAB12 PO; -PHENYLEPH/NS 1000 MCG/10 ML SYR IV ONE; -PROPOFOL 200 MG/20 ML AMP IV ONE; +WALKER WHEELS/F1 MIS; +WHEEMIS3; +XARE20TA PO; -ceFAZolin 2 GM PREMIX 50 ML IV STA
[2016-07-24 13:30] VITALS: BP 129/74; PULSE 62; RESP 14; TEMP 98.2; O2SAT 98
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
[2016-07-24] MEDS ORDERED: OXYC30TA PO (13:53)
[2016-07-26] MEDS ORDERED: IBUP400T20 PO (08:43)
[2016-07-26] MEDS ORDERED: PERC5TAB12 PO (12:42)
[2016-07-26] MEDS ORDERED: IBUP800T23 PO (12:42)
[2016-08-18] MEDS ORDERED: BACT800T5 PO (09:25)
== END 2016-07-24 14:25 | disposition home or self-care (01) ==
LOC: NEPK 13:29
DX: R22.31 Localized swelling, mass and lump, right upper limb (principal); R23.8 Other skin changes; V29.9XXD Motorcycle rider (driver) (passenger) injured in unspecified traffic accident, subsequent encounter
CPT/HCPCS: 99283

== ENCOUNTER → 2016-07-26 | Day surgery (SDC) | payer OTHER ==
[~2016-07-26] VITALS: Ht 175.3 cm; Wt 77.2 kg
[~2016-07-26] MED LIST changes: +BACT800T5 PO; +BUPIVACAINE HCL PF 0.5% 30 ML VIAL ONE; +DEXAMETHASONE SOD PHOS 4 MG/ML VIAL ONE; +DEXT 5%-NACL 0.45% 1000 ML INJ 1,000 ML IV SCH; +FAMOTIDINE 20 MG/2 ML VIAL ONE; +IBUP400T20 PO; +IBUP800T23 PO; +KETOROLAC TROMETHAMINE 60 MG/2 ML (IM) VIAL IM ONE; +LACTATED RINGER'S 1000 ML INJ 1,000 ML ONE; +LACTATED RINGER'S 1000 ML INJ 2,000 ML IV ONE; +MEPERIDINE HCL 25 MG/ML VIAL ONE; +MIDAZOLAM HCL 2 MG/2 ML VIAL ONE; +NALOXONE HCL 0.4 MG/ML AMP IV ONE; +ONDANSETRON HCL 4 MG/2 ML VIAL IV PUSH ONE; +OXYC30TA PO; +POVIDONE IODINE 10% OINT 1 PACKET TOPICAL ONE; +PROPOFOL 200 MG/20 ML AMP IV ONE; +SODIUM CHLORIDE 0.9% FLUSH 5 ML FLUSH IVF PRN; +SODIUM CHLORIDE 0.9% FLUSH 5 ML FLUSH IVF SCH; +ceFAZolin 2 GM PREMIX 50 ML ONE; +fentaNYL CITRATE 250 MCG/5 ML AMP ONE
[2016-07-26 08:40] VITALS: BP 145/91; PULSE 95; RESP 14; TEMP 98.7; O2SAT 99
[2016-07-26 09:07] LABS: HEMATOCRIT 44.8 % (39.0-51.0); MEAN CELL VOLUME 86.9 FL (80.0-100.0); MEAN CORPUSCULAR HGB CONC 32.2 % (32.0-36.0); PLATELET COUNT 319 TH/MM3 (150-450); RED BLOOD COUNT 5.16 MIL/MM3 (4.50-5.90); RED CELL DISTRIBUTION WIDTH 12.9 % (11.6-17.2); REVIEW FLAG FINAL; WHITE BLOOD COUNT 5.6 TH/MM3 (4.0-11.0)
--- NOTE | 2016-07-26 09:42 | HP.UPD ---
H&P Update Date: July 26, 2016 Note The Pre-Admit History and Physical Examination regarding the above named patient was reviewed (including, but not limited to, vital signs, medications, allergies, co-morbid conditions), and upon re-examination it is noted that: Indicated with "X" x - the patient's condition has not significantly changed since the last examination. [] - the patient's condition has changed since the last examination. Changes: Silvia Whitt MD July 26, 2016 09:42
--- NOTE | 2016-07-26 12:44 | HHI.PR ---
Immediate Post Op Note Procedure Date: July 26, 2016 Pre Op Diagnosis: (1) Dislocation of carpometacarpal joint of left thumb Post Op Diagnosis: (1) Dislocation of carpometacarpal joint of left thumb Surgeon: Silvia Whitt Ux Developer Designer(s): None Procedure: Open reduction of left thumb CMC dislocation. Anesthesia: General Drains: None Tourniquet time (min at mmHg) 63 minutes at 220 mm Hg. Patient to: PACU Patient Condition: Good Implant/Devices: SEE IMPLANT LOG (if applicable) Date/Time of Procedure: SEE SURGICAL CARE RECORD Silvia Whitt MD July 26, 2016 12:44
[2016-07-26 12:49] VITALS: PULSE 120
[2016-07-26 14:05] VITALS: BP 145/83; PULSE 100; RESP 16; TEMP 98.6; O2SAT 100
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
== END | disposition home or self-care (01) ==
LOC: PHSDC 08:19
PROVIDERS: ATTEND Specialist
DX: S63.045A Dislocation of carpometacarpal joint of left thumb, initial encounter (principal); V89.2XXA Person injured in unspecified motor-vehicle accident, traffic, initial encounter; Y92.410 Unspecified street and highway as the place of occurrence of the external cause
CPT/HCPCS: 26650; 36415; 76000; 85027; C1713; J0690; J1100; J1885; J2175; J2250; J2310; J2405; J3010; J7120

== ENCOUNTER → 2016-08-10 | Outpatient (CLI) | payer OTHER ==
[~2016-08-10] MED LIST changes: -BUPIVACAINE HCL PF 0.5% 30 ML VIAL ONE; -DEXAMETHASONE SOD PHOS 4 MG/ML VIAL ONE; -DEXT 5%-NACL 0.45% 1000 ML INJ 1,000 ML IV SCH; -FAMOTIDINE 20 MG/2 ML VIAL ONE; -KETOROLAC TROMETHAMINE 60 MG/2 ML (IM) VIAL IM ONE; -LACTATED RINGER'S 1000 ML INJ 1,000 ML ONE; -LACTATED RINGER'S 1000 ML INJ 2,000 ML IV ONE; -MEPERIDINE HCL 25 MG/ML VIAL ONE; -MIDAZOLAM HCL 2 MG/2 ML VIAL ONE; -NALOXONE HCL 0.4 MG/ML AMP IV ONE; -ONDANSETRON HCL 4 MG/2 ML VIAL IV PUSH ONE; -POVIDONE IODINE 10% OINT 1 PACKET TOPICAL ONE; -PROPOFOL 200 MG/20 ML AMP IV ONE; -SODIUM CHLORIDE 0.9% FLUSH 5 ML FLUSH IVF PRN; -SODIUM CHLORIDE 0.9% FLUSH 5 ML FLUSH IVF SCH; -WALKER WHEELS/F1 MIS; -WHEEMIS3; -XARE20TA PO; -ceFAZolin 2 GM PREMIX 50 ML ONE; -fentaNYL CITRATE 250 MCG/5 ML AMP ONE
== END ==
LOC: HORT 15:08
PROVIDERS: ATTEND Orthopaedic Surgery
DX: S82.841A Displaced bimalleolar fracture of right lower leg, initial encounter for closed fracture (principal); X58.XXXA Exposure to other specified factors, initial encounter
CPT/HCPCS: L2114